=== PATIENT | male | born 1955 ===

== ENCOUNTER 2017-10-04 12:06 | Emergency (ER) | payer BC ==
--- NOTE | 2017-10-04 12:15 | ER Report ---
History and Physical Time Seen By MD: 12:14 Hx. of Stated Complaint: PT REPORTS L FLANK PAIN STARTING LAST NIGHT HPI/ROS This is a 61-year-old male with past medical history significant for colon cancer with surgical resection and then repair. He presents to the emergency department with left-sided flank pain that started at 6 PM yesterday. He does not remember what he was doing at the time. He reports some radiation to his left upper quadrant but reports that the majority of the pain is in his left flank. He has no urinary symptoms and no hematuria. No other abdominal pain. He does report worsening nausea and vomiting. No chest pain, no shortness of breath. States he did not sleep last night, and was up frequently walking around due to the pain. He has had no falls or other trauma. Allergies: Coded Allergies: sulfamethoxazole (Verified Allergy, Severe, 10/04/17) trimethoprim (Verified Allergy, Severe, 10/04/17) Home Meds Active Scripts Hydrocodone Bit/Acetaminophen (HYDROCODON-ACETAMINOPHEN 5-325) 1 Each Tablet, 1 EACH PO Q6H for 7 Days, #14 TAB Prov:COLTEN KONG MD 10/04/17 Ondansetron (ZOFRAN ODT) 4 Mg Tab.rapdis, 4 MG PO Q6H Y for NAUSEA/VOMITING for 7 Days, #20 TAB.MERISSA 0 Refills Prov:COLTEN KONG MD 10/04/17 Ketorolac Tromethamine (KETOROLAC TROMETHAMINE) 10 Mg Tab, 10 MG PO Q6H Y for PAIN for 7 Days, #20 TAB 0 Refills Prov:COLTEN KONG MD 10/04/17 Reviewed Nurses Notes: Yes Hx Smoking: No Smoking Status: Never Smoker Exposure to Second Hand Smoke?: No Hx Substance Use Disorder: No Hx Alcohol Use: No Constitutional Vital Sign - Last 24 Hours 10/04/17 10/04/17 10/04/17 10/04/17 12:06 12:09 12:14 12:30 Temp 98.9 Pulse ??? 88 Resp 16 B/P (MAP) 169/92 169/92 (117) 161/91 (114) Pulse Ox 91 O2 Delivery Room Air 10/04/17 10/04/17 10/04/17 10/04/17 12:36 12:51 13:00 13:06 Pulse 83 83 ??? B/P (MAP) 146/88 (107) Pulse Ox 90 95 89 10/04/17 10/04/17 10/04/17 10/04/17 13:21 13:30 13:36 13:51 Pulse 86 ??? 80 B/P (MAP) ???/??? (1665) Pulse Ox 88 89 10/04/17 10/04/17 10/04/17 10/04/17 14:00 14:05 14:20 14:30 Pulse 83 89 B/P (MAP) 132/80 (97) 123/79 (94) Pulse Ox 86 88 10/04/17 10/04/17 10/04/17 10/04/17 14:35 14:50 15:00 15:05 Pulse 86 76 73 B/P (MAP) 115/73 (87) Pulse Ox 88 95 95 Physical Exam General Appearance: The patient is alert, has no immediate need for airway protection and no current signs of toxicity. Eyes: Pupils equal and round no injection. Respiratory: Chest is non tender, lungs are clear to auscultation. Cardiac: regular rate and rhythm Gastrointestinal: Abdomen is soft and non tender, no masses, bowel sounds normal. Musculoskeletal: TTP at the left flank Skin: no rashes/lesions DIFFERENTIAL DIAGNOSIS: After history and physical exam differential diagnosis was considered for AAA, kidney stone, diverticulitis, MSK pain, pyelonephritis Medical Decision Making Data Points Result Diagram: 10/04/17 1251 10/04/17 1251 Laboratory Hematology Test 10/04/17 12:13 10/04/17 12:51 Urine Color Yellow Urine Clarity Clear Urine pH 6.0 pH (4.8-9.5) Urine Specific [place] 1.020 Urine Protein Negative mg/dL (NEGATIVE) Urine Glucose (UA) Negative mg/dL (NEGATIVE) Urine Ketones Negative mg/dL (NEGATIVE) Urine Blood Small (NEGATIVE) Urine Nitrite Negative (NEGATIVE) Urine Bilirubin Negative (NEGATIVE) Urine Urobilinogen Negative mg/dL (0.2-1.9) Urine Leukocyte Esterase Negative (NEGATIVE) Urine RBC 8 /HPF (0-2/HPF) Urine WBC 1 /HPF (0-5/HPF) Urine Squamous Epithelial Cells None /LPF (</=FEW) Urine Bacteria Negative /HPF (NONE-FEW) Urine Mucus Few /HPF (NONE-FEW) Red Blood Count 5.31 M/uL (4.00-5.60) Mean Corpuscular Volume 84.8 fL (80.0-96.0) Mean Corpuscular Hemoglobin 29.4 pg (26.0-33.0) Mean Corpuscular Hemoglobin Concent 34.6 g/dL (32.0-36.0) Red Cell Distribution Width 13.4 % (11.5-14.5) Mean Platelet Volume 8.7 fL (7.2-11.1) Neutrophils (%) (Auto) 83.8 % (39.4-72.5) Lymphocytes (%) (Auto) 7.9 % (17.6-49.6) Monocytes (%) (Auto) 7.4 % (4.1-12.4) Eosinophils (%) (Auto) 0.3 % (0.4-6.7) Basophils (%) (Auto) 0.6 % (0.3-1.4) Nucleated RBC Relative Count (auto) 0.2 /100WBC Neutrophils # (Auto) 10.0 K/uL (2.0-7.4) Lymphocytes # (Auto) 0.9 K/uL (1.3-3.6) Monocytes # (Auto) 0.9 K/uL (0.3-1.0) Eosinophils # (Auto) 0.0 K/uL (0.0-0.5) Basophils # (Auto) 0.1 K/uL (0.0-0.1) Nucleated RBC Absolute Count (auto) 0.02 K/uL Sodium Level 138 mmol/L (137-145) Potassium Level 4.3 mmol/L (3.5-5.0) Chloride Level 103 mmol/L (98-107) Carbon Dioxide Level 22 mmol/L (22-30) Blood Urea Nitrogen 19 mg/dl (9-21) Creatinine 1.50 mg/dl (0.66-1.25) Glomerular Filtration Rate Calc 47.7 Random Glucose 105 mg/dl (75-110) Calcium Level 9.4 mg/dl (8.4-10.2) Total Bilirubin 0.9 mg/dl (0.2-1.3) Aspartate Amino Transf (AST/SGOT) 21 U/L (0-35) Alanine Aminotransferase (ALT/SGPT) 31 U/L (0-56) Alkaline Phosphatase 65 U/L (0-126) Total Protein 6.8 gm/dl (6.3-8.2) Albumin 3.9 g/dl (3.5-5.0) Chemistry Test 10/04/17 12:13 10/04/17 12:51 Urine Color Yellow Urine Clarity Clear Urine pH 6.0 pH (4.8-9.5) Urine Specific [place] 1.020 Urine Protein Negative mg/dL (NEGATIVE) Urine Glucose (UA) Negative mg/dL (NEGATIVE) Urine Ketones Negative mg/dL (NEGATIVE) Urine Blood Small (NEGATIVE) Urine Nitrite Negative (NEGATIVE) Urine Bilirubin Negative (NEGATIVE) Urine Urobilinogen Negative mg/dL (0.2-1.9) Urine Leukocyte Esterase Negative (NEGATIVE) Urine RBC 8 /HPF (0-2/HPF) Urine WBC 1 /HPF (0-5/HPF) Urine Squamous Epithelial Cells None /LPF (</=FEW) Urine Bacteria Negative /HPF (NONE-FEW) Urine Mucus Few /HPF (NONE-FEW) White Blood Count 11.9 k/uL (4.5-11.0) Red Blood Count 5.31 M/uL (4.00-5.60) Hemoglobin 15.6 g/dL (14.0-18.0) Hematocrit 45.0 % (42.0-52.0) Mean Corpuscular Volume 84.8 fL (80.0-96.0) Mean Corpuscular Hemoglobin 29.4 pg (26.0-33.0) Mean Corpuscular Hemoglobin Concent 34.6 g/dL (32.0-36.0) Red Cell Distribution Width 13.4 % (11.5-14.5) Platelet Count 204 K/uL (150-450) Mean Platelet Volume 8.7 fL (7.2-11.1) Neutrophils (%) (Auto) 83.8 % (39.4-72.5) Lymphocytes (%) (Auto) 7.9 % (17.6-49.6) Monocytes (%) (Auto) 7.4 % (4.1-12.4) Eosinophils (%) (Auto) 0.3 % (0.4-6.7) Basophils (%) (Auto) 0.6 % (0.3-1.4) Nucleated RBC Relative Count (auto) 0.2 /100WBC Neutrophils # (Auto) 10.0 K/uL (2.0-7.4) Lymphocytes # (Auto) 0.9 K/uL (1.3-3.6) Monocytes # (Auto) 0.9 K/uL (0.3-1.0) Eosinophils # (Auto) 0.0 K/uL (0.0-0.5) Basophils # (Auto) 0.1 K/uL (0.0-0.1) Nucleated RBC Absolute Count (auto) 0.02 K/uL Glomerular Filtration Rate Calc 47.7 Calcium Level 9.4 mg/dl (8.4-10.2) Total Bilirubin 0.9 mg/dl (0.2-1.3) Aspartate Amino Transf (AST/SGOT) 21 U/L (0-35) Alanine Aminotransferase (ALT/SGPT) 31 U/L (0-56) Alkaline Phosphatase 65 U/L (0-126) Total Protein 6.8 gm/dl (6.3-8.2) Albumin 3.9 g/dl (3.5-5.0) Urinalysis Test 10/04/17 12:13 Urine Color Yellow Urine Clarity Clear Urine pH 6.0 pH (4.8-9.5) Urine Specific [place] 1.020 Urine Protein Negative mg/dL (NEGATIVE) Urine Glucose (UA) Negative mg/dL (NEGATIVE) Urine Ketones Negative mg/dL (NEGATIVE) Urine Blood Small (NEGATIVE) Urine Nitrite Negative (NEGATIVE) Urine Bilirubin Negative (NEGATIVE) Urine Urobilinogen Negative mg/dL (0.2-1.9) Urine Leukocyte Esterase Negative (NEGATIVE) Urine RBC 8 /HPF (0-2/HPF) Urine WBC 1 /HPF (0-5/HPF) Urine Squamous Epithelial Cells None /LPF (</=FEW) Urine Bacteria Negative /HPF (NONE-FEW) Urine Mucus Few /HPF (NONE-FEW) EKG/Imaging Imaging Results: CT scan of the abdomen/pelvis was obtained. The results of the study are 5mm stone in the left ureter The study was read by the radiologist. I viewed the images myself on the PACS system. ED Course/Re-evaluation ED Course 61 y/o male with left flank pain due to a left sided ureteral stone. Pain free with Toradol. We will discharge with ibuprofen, Vicodin, and Zofran. He will follow-up with his primary care doctor back in [place] when he goes home at the end of week. Decision to Disposition Date: October 04, 2017 Decision to Disposition Time: 15:00 Depart Departure Latest Vital Signs Vital Signs Date Time Temp Pulse Resp B/P (MAP) Pulse Ox O2 Delivery O2 Flow Rate FiO2 10/04/17 15:05 73 95 10/04/17 15:00 115/73 (87) 10/04/17 12:09 98.9 16 Room Air Impression: Primary Impression: Kidney stone on left side Condition: Improved Disposition: HOME OR SELF-CARE New Scripts Hydrocodone Bit/Acetaminophen (HYDROCODON-ACETAMINOPHEN 5-325) 1 Each Tablet 1 EACH PO Q6H for 7 Days, #14 TAB Prov: COLTEN KONG MD 10/04/17 Ondansetron (ZOFRAN ODT) 4 Mg Tab.rapdis 4 MG PO Q6H Y for NAUSEA/VOMITING for 7 Days, #20 TAB.MERISSA 0 Refills Prov: COLTEN KONG MD 10/04/17 Ketorolac Tromethamine (KETOROLAC TROMETHAMINE) 10 Mg Tab 10 MG PO Q6H Y for PAIN for 7 Days, #20 TAB 0 Refills Prov: COLTEN KONG MD 10/04/17 Patient Instructions: Ureteral Stones (DC) COLTEN KONG MD October 04, 2017 12:15
[2017-10-04] MEDS ORDERED: KETOROLAC 30 MG/ML VIAL IVP ONE (12:50)
[2017-10-04] MEDS ORDERED: ONDANSETRON 4 MG/2 ML VIAL IVP ONE (12:50)
[2017-10-04 12:56] LABS: PLATELET COUNT, AUTOMATED 204 K/uL (150-450)
--- NOTE | 2017-10-04 14:01 | RADIOLOGY IMAGING REPORT ---
FACILITY: [facility] PATIENT NAME: Sylvain Arana : 1955 MR: [id number] V: [id number] EXAM DATE: ORDERING PHYSICIAN: COLTEN KONG TECHNOLOGIST: [place] [facility] [place]vain Ar[place] : 1955 Visit/Account:[id number] Date of Sevice: 10/04/2017 EXAMINATION: CT ABDOMEN AND PELVIS WITHOUT CONTRAST COMPARISON: None. HISTORY: Left flank pain. PROCEDURE: Multiplanar noncontrast CT of the abdomen and pelvis. One of the following dose optimizati on techniques was utilized in the performance of this exam: Automated exposure control; adjustment of the mA and/or kV according to the patient's size; or use of an iterative reconstruction technique. Specific details can be referenced in the facility's radiology CT exam operational policy. FINDINGS: Evaluation of the solid and viscus parenchymal organs and vascular structures is limited wi thout the benefit of IV contrast. Visualized thorax: No evidence of acute disease within the visualized lower thorax. Liver: Mild hepatic steatosis. Gallbladder and biliary system: Noncalcified gallstones. No pericholecystic inflammation bile duct di lation. Spleen: Negative. Pancreas: Noncontrast imaging of the pancreas is within normal limits. Adrenal glands: Negative. Kidneys and bladder: Moderate left-sided hydroureteronephrosis due to a 5 mm ureteral stone approxima tely 9 to 10 cm from the ureterovesical junction. Left kidney lower pole nonobstructing nephrolithias is are also present. No right-sided radiopaque urolithiasis or hydronephrosis. Urinary bladder is unr emarkable. Vessels: Minimal calcified atherosclerotic plaque. No abdominal aortic aneurysm. Bowel and mesentery: Stomach is within normal limits. Short segment of small bowel extending through a supraumbilical ventral hernia; no evidence of associated bowel obstruction or inflammation. Distal small bowel surgical anastomosis. Appendix is unremarkable. Small amount of stool in the colon. No lisa wel or mesenteric inflammation. Pelvic organs: Negative. Lymph nodes: No adenopathy. Free air/free fluid: None. Abdominal wall and osseous structures: Small fat-containing left inguinal hernia. Periumbilical posto perative change with regions of the abdominal wall laxity. 6 cm cephalad to the umbilicus is a midlin e ventral hernia with a 5.1 x 2.1 cm neck which contains a short segment of otherwise unremarkable sm all bowel. Mild degenerative change in the visualized osseous structures. IMPRESSION: 1. Moderate left-sided obstructive uropathy due to a 5 mm ureteral stone approximately 9 to 10 cm fro m the ureterovesical junction. 2. Left kidney lower pole nonobstructing nephrolithiasis. 3. Supraumbilical ventral hernia containing a short segment of small bowel. No evidence of bowel obst ruction or inflammation. 4. Cholelithiasis. Report Dictated By: Royal Mittal MD at 10/04/2017 1:48 PM Report E-Signed By: Royal Mittal MD at 10/04/2017 1:56 PM WSN:[id number]
[2017-10-04 15:00] VITALS: BP 115/73
[2017-10-04] MEDS ORDERED: ONDA4TAB PO (15:03)
[2017-10-04] MEDS ORDERED: HYDR-385 PO (15:03)
[2017-10-04] MEDS ORDERED: KET10 PO (15:03)
== END 2017-10-04 15:10 | disposition home or self-care (01) ==
LOC: ER 12:15
DX: N20.0 Calculus of kidney (principal)
CPT/HCPCS: 36415; 74176; 81001; 85025; 96374; 96375; 99284; J1885; J2405; 82040; 82247; 82310; 82374; 82435; 82565; 82947; 84075; 84132; 84155; 84295; 84450; 84460; 84520